=== PATIENT | female | born 1930 | race African-American/Black ===

== ENCOUNTER 2017-09-24 11:25 | Inpatient (IN) ==
[2017-09-24 11:57] LABS: Basophils % 0.2 % (0.0-0.8); Hematocrit 45.4 VOL% (35.7-47.0); Hemoglobin 14.1 GM/DL (12.0-16.0); Immature Granulocytes % 0.3 %; Immature Granulocytes Absolute 0.03 #; Lymphocytes # 1.3 10*3/uL (1.4-4.0); Lymphocytes % 13.7 % (21.3-54.2); Mean Corpuscular HGB Conc 31.1 GM/DL (32-36); Mean Corpuscular Hemoglobin 25 PG (27-34); Mean Corpuscular Volume 80.9 FL (87-102); Mean Platelet Volume 12.4 FL (9.6-12.0); Monocytes # 0.8 10*3/uL (0.11-0.8); Monocytes % 8.5 % (1.7-12.7); NRBC # 0.02 10*3/uL; Neutrophils # 7.1 10*3/uL (1.4-7.4); Neutrophils % 77.3 % (38.7-73.9); Platelet Count 221 T/CUMM (130-400); Red Blood Count 5.61 MC/CUMM (3.8-5.5); Red Cell Distribution Width 15.9 % (9.3-17.3); White Blood Count 9.2 T/CUMM (4-12)
[2017-09-24 12:04] LABS: INR 1.1; PT Patient Result 11.2 SECS; Partial Thromboplastin Time 21.2 SECS (0-40)
[2017-09-24 12:31] LABS: Albumin 3.5 G/DL (3.4-5.0); Bilirubin,Total 0.7 MG/DL (0.2-1.0); Calcium 10.2 MG/DL (8.5-10.1); Osmolality,Calculated 340.6 MOS/KG (273-304); Potassium 4.3 MMOL/L (3.5-5.1); Thyroid Stimulating Hormone 2.95 uIU/ml (0.358-3.74); Total Protein 7.9 G/DL (6.4-8.3)
[2017-09-24 13:30] LABS: Apearance,Urine Slightly Hazy (Clear); Bacteria,Urine Many /HPF (Few); Bilirubin,Urine Negative (Negative); Blood, Urine Negative (Negative); Glucose,Urine (UA) Negative (Negative); Ketones,Urine 5 mg/dL (Negative); Mucus,Urine Many /LPF (Occasional); Nitrite,Urine Negative (Negative); Protein,Urine Negative; RBC,Urine 1 /HPF (0-4); Urine Color Yellow (Yellow); Urine Specific Gravity 1.012 (1.001-1.035); WBC,Urine 12 /HPF (0-6)
[2017-09-24 13:34] LABS: Barbiturates Screen,Urine Negative (Negative); Benzodiazepines Screen,Urine Negative (Negative); Cannabinoid Screen,Urine Negative (Negative); Opiate Screen,Urine Negative (Negative); Phencyclidine Screen,Urine Negative (Negative)
[2017-09-25 07:33] LABS: Basophils % 0.1 % (0.0-0.8); Eosinophils % 0.1 % (0.00-10.9); Immature Granulocytes % 0.6 %; Immature Granulocytes Absolute 0.07 #; Lymphocytes # 1.4 10*3/uL (1.4-4.0); Lymphocytes % 12.4 % (21.3-54.2); Mean Corpuscular HGB Conc 30.8 GM/DL (32-36); Mean Corpuscular Hemoglobin 25 PG (27-34); Mean Corpuscular Volume 80.2 FL (87-102); Monocytes # 1.3 10*3/uL (0.11-0.8); Monocytes % 11.5 % (1.7-12.7); Neutrophils # 8.3 10*3/uL (1.4-7.4); Neutrophils % 75.3 % (38.7-73.9); Platelet Count 178 T/CUMM (130-400); Red Blood Count 4.86 MC/CUMM (3.8-5.5); Red Cell Distribution Width 15.9 % (9.3-17.3); White Blood Count 11.1 T/CUMM (4-12)
[2017-09-25 08:04] LABS: Calcium 8.8 MG/DL (8.5-10.1); Osmolality,Calculated 338.3 MOS/KG (273-304); Potassium 3.9 MMOL/L (3.5-5.1)
[2017-09-26 06:14] LABS: Basophils % 0.1 % (0.0-0.8); Eosinophils % 0.3 % (0.00-10.9); Hematocrit 35.7 VOL% (35.7-47.0); Hemoglobin 11.1 GM/DL (12.0-16.0); Immature Granulocytes % 0.6 %; Immature Granulocytes Absolute 0.06 #; Lymphocytes # 1.3 10*3/uL (1.4-4.0); Lymphocytes % 13.4 % (21.3-54.2); Mean Corpuscular HGB Conc 31.1 GM/DL (32-36); Mean Corpuscular Hemoglobin 26 PG (27-34); Mean Corpuscular Volume 81.9 FL (87-102); Mean Platelet Volume 12.8 FL (9.6-12.0); Monocytes # 0.9 10*3/uL (0.11-0.8); Monocytes % 9.4 % (1.7-12.7); Neutrophils # 7.3 10*3/uL (1.4-7.4); Neutrophils % 76.2 % (38.7-73.9); Platelet Count 124 T/CUMM (130-400); Red Blood Count 4.36 MC/CUMM (3.8-5.5); Red Cell Distribution Width 15.5 % (9.3-17.3); White Blood Count 9.6 T/CUMM (4-12)
[2017-09-26 06:50] LABS: Albumin 2.3 G/DL (3.4-5.0); Bilirubin,Total 0.7 MG/DL (0.2-1.0); Calcium 8.9 MG/DL (8.5-10.1); Osmolality,Calculated 320.3 MOS/KG (273-304); Potassium 5.7 MMOL/L (3.5-5.1)
[2017-09-27 05:21] LABS: Basophils % 0.1 % (0.0-0.8); Eosinophils % 0.2 % (0.00-10.9); Hematocrit 34.3 VOL% (35.7-47.0); Hemoglobin 10.8 GM/DL (12.0-16.0); Immature Granulocytes % 0.4 %; Immature Granulocytes Absolute 0.04 #; Lymphocytes # 1.2 10*3/uL (1.4-4.0); Lymphocytes % 12.8 % (21.3-54.2); Mean Corpuscular HGB Conc 31.5 GM/DL (32-36); Mean Corpuscular Hemoglobin 25 PG (27-34); Mean Corpuscular Volume 80.7 FL (87-102); Monocytes % 11.5 % (1.7-12.7); NRBC # 0.02 10*3/uL; Neutrophils # 6.8 10*3/uL (1.4-7.4); Platelet Count 138 T/CUMM (130-400); Red Blood Count 4.25 MC/CUMM (3.8-5.5); Red Cell Distribution Width 15.3 % (9.3-17.3); White Blood Count 9.1 T/CUMM (4-12)
[2017-09-27 05:56] LABS: Albumin 2.6 G/DL (3.4-5.0); Bilirubin,Total 1.2 MG/DL (0.2-1.0); Calcium 8.8 MG/DL (8.5-10.1); Total Protein 6.3 G/DL (6.4-8.3)
[2017-09-27 05:57] LABS: Osmolality,Calculated 324.4 MOS/KG (273-304); Potassium 3.3 MMOL/L (3.5-5.1)
[2017-09-27 05:58] LABS: Osmolality,Calculated 323.4 MOS/KG (273-304); Potassium 3.4 MMOL/L (3.5-5.1); Prealbumin 15.1 MG/DL (20-40)
[2017-09-28 08:29] LABS: Basophils % 0.3 % (0.0-0.8); Eosinophils # 0.1 10*3/uL (0.0-0.87); Eosinophils % 0.7 % (0.00-10.9); Hemoglobin 11.7 GM/DL (12.0-16.0); Immature Granulocytes % 0.7 %; Immature Granulocytes Absolute 0.05 #; Lymphocytes # 1.3 10*3/uL (1.4-4.0); Mean Corpuscular HGB Conc 30.8 GM/DL (32-36); Mean Corpuscular Hemoglobin 25 PG (27-34); Mean Corpuscular Volume 80.7 FL (87-102); Mean Platelet Volume 13.2 FL (9.6-12.0); Monocytes % 12.8 % (1.7-12.7); Neutrophils # 5.1 10*3/uL (1.4-7.4); Neutrophils % 68.5 % (38.7-73.9); Platelet Count 111 T/CUMM (130-400); Red Blood Count 4.71 MC/CUMM (3.8-5.5); Red Cell Distribution Width 15.4 % (9.3-17.3); White Blood Count 7.4 T/CUMM (4-12)
[2017-09-28 08:51] LABS: Albumin 2.8 G/DL (3.4-5.0); Bilirubin,Total 0.5 MG/DL (0.2-1.0); Calcium 9.2 MG/DL (8.5-10.1); Osmolality,Calculated 317.6 MOS/KG (273-304); Potassium 3.9 MMOL/L (3.5-5.1); Total Protein 6.7 G/DL (6.4-8.3)
[2017-09-28 11:37] VITALS: BP 137/64
== END 2017-09-28 14:30 | DRG 683 ==
LOC: EDBD → EDUNIT# → N.ED 11:25 → N.EDINP 13:57 → N.2E 14:40
PROVIDERS: ADMIT Internal Medicine; ATTEND Internal Medicine

== ENCOUNTER 2017-10-05 13:11 | Inpatient (IN) ==
[2017-10-05 14:09] LABS: Amorphous Crystals,Urine Occasional /HPF (Few); Apearance,Urine Slightly Hazy (Clear); Bilirubin,Urine Negative (Negative); Blood, Urine Negative (Negative); Glucose,Urine (UA) Negative (Negative); Hyaline Casts,Urine 13 /LPF (0-3); Ketones,Urine 20 mg/dL (Negative); Mucus,Urine Occasional /LPF (Occasional); Nitrite,Urine Negative (Negative); Protein,Urine 30 MG/DL; Squamous Epithelial Cell,Urine Occasional /HPF (0-10); Urine Color Yellow (Yellow); Urine Specific Gravity 1.016 (1.001-1.035); WBC,Urine 4 /HPF (0-6)
[2017-10-05 14:10] LABS: Basophils % 0.2 % (0.0-0.8); Eosinophils % 0.4 % (0.00-10.9); Hematocrit 33.9 VOL% (35.7-47.0); Hemoglobin 10.5 GM/DL (12.0-16.0); Immature Granulocytes % 0.4 %; Immature Granulocytes Absolute 0.02 #; Lymphocytes % 20.6 % (21.3-54.2); Mean Corpuscular Hemoglobin 25 PG (27-34); Mean Corpuscular Volume 80.3 FL (87-102); Mean Platelet Volume 12.4 FL (9.6-12.0); Monocytes # 0.4 10*3/uL (0.11-0.8); Monocytes % 9.1 % (1.7-12.7); Neutrophils # 3.3 10*3/uL (1.4-7.4); Neutrophils % 69.3 % (38.7-73.9); Platelet Count 191 T/CUMM (130-400); Red Blood Count 4.22 MC/CUMM (3.8-5.5); White Blood Count 4.7 T/CUMM (4-12)
[2017-10-05 14:32] LABS: Albumin 2.7 G/DL (3.4-5.0); Bilirubin,Total 0.5 MG/DL (0.2-1.0); Calcium 8.6 MG/DL (8.5-10.1); Osmolality,Calculated 301.7 MOS/KG (273-304); Potassium 3.5 MMOL/L (3.5-5.1); Total Protein 6.2 G/DL (6.4-8.3)
[2017-10-05] MEDS ORDERED: SODIUM CHLORIDE 0.9% 500 ML IV STA (14:49)
[2017-10-05] MEDS: DEXTROSE 5% NACL 0.45% 1,000 ML IV SCH (18:44)
[2017-10-05] MEDS: CARBIDOPA/LEVODOPA 25-100 MG TABLET PO SCH (20:37)
[2017-10-05] MEDS: NYSTATIN 500,000 UNIT/5 ML UDCUP SWISH/SWAL SCH (20:37)
[2017-10-05] MEDS: rOPINIRole 1 MG TABLET PO SCH (20:37)
[2017-10-05] MEDS ORDERED: NYSTATIN 500,000 UNIT/5 ML UDCUP SWISH/SWAL SCH (21:00)
[2017-10-06] MEDS: DEXTROSE 5% NACL 0.45% 1,000 ML IV SCH ×2 (05:00→15:10)
[2017-10-06] MEDS: rOPINIRole 1 MG TABLET PO SCH ×3 (08:18→21:36)
[2017-10-06] MEDS: NYSTATIN 500,000 UNIT/5 ML UDCUP SWISH/SWAL SCH ×4 (08:18→21:36)
[2017-10-06] MEDS: FAMOTIDINE 8 MG/ML 50 ML/BOTTLE PO SCH (08:18)
[2017-10-06] MEDS: MEMANTINE 10 MG TABLET PO SCH (08:18)
[2017-10-06] MEDS: MEGESTROL 400 MG/10 ML UDCUP PO SCH (08:18)
[2017-10-06] MEDS: CARBIDOPA/LEVODOPA 25-100 MG TABLET PO SCH ×3 (08:18→21:36)
[2017-10-06] MEDS: ASPIRIN EC 81 MG TABLET PO SCH ×2 (08:18→17:32)
[2017-10-06] MEDS: DONEPEZIL 10 MG TABLET PO SCH (08:18)
[2017-10-06 09:53] LABS: Basophils % 0.3 % (0.0-0.8); Eosinophils % 0.8 % (0.00-10.9); Hematocrit 31.1 VOL% (35.7-47.0); Hemoglobin 9.6 GM/DL (12.0-16.0); Immature Granulocytes % 0.5 %; Immature Granulocytes Absolute 0.02 #; Lymphocytes # 0.9 10*3/uL (1.4-4.0); Lymphocytes % 21.9 % (21.3-54.2); Mean Corpuscular HGB Conc 30.9 GM/DL (32-36); Mean Corpuscular Hemoglobin 25 PG (27-34); Mean Corpuscular Volume 79.9 FL (87-102); Monocytes # 0.4 10*3/uL (0.11-0.8); Monocytes % 10.6 % (1.7-12.7); Neutrophils # 2.6 10*3/uL (1.4-7.4); Neutrophils % 65.9 % (38.7-73.9); Platelet Count 165 T/CUMM (130-400); Red Blood Count 3.89 MC/CUMM (3.8-5.5); Red Cell Distribution Width 15.7 % (9.3-17.3)
[2017-10-06 10:17] LABS: Albumin 2.5 G/DL (3.4-5.0); Bilirubin,Total 0.5 MG/DL (0.2-1.0); Calcium 8.3 MG/DL (8.5-10.1); Osmolality,Calculated 298.1 MOS/KG (273-304); Potassium 2.9 MMOL/L (3.5-5.1); Total Protein 5.6 G/DL (6.4-8.3)
[2017-10-06 12:08] LABS: Apearance,Urine CLOUDY (Clear); Bacteria,Urine Occasional /HPF (Few); Bilirubin,Urine Negative (Negative); Blood, Urine Small mg/dL (Negative); Glucose,Urine (UA) Negative (Negative); Hyaline Casts,Urine 575 /LPF (0-3); Ketones,Urine 20 mg/dL (Negative); Mucus,Urine Many /LPF (Occasional); Nitrite,Urine Negative (Negative); Protein,Urine 30 MG/DL; Squamous Epithelial Cell,Urine Many /HPF (0-10); Urine Color Amber (Yellow); Urine Specific Gravity 1.017 (1.001-1.035); Urine Urobilinogen < 2.0 EU/DL (0.2-1.0); WBC,Urine 5 /HPF (0-6)
[2017-10-06] MEDS: HALOPERIDOL 5 MG/ML AMP IV PRN (18:26)
[2017-10-07 07:36] LABS: Potassium 2.9 MMOL/L (3.5-5.1)
[2017-10-07] MEDS: rOPINIRole 1 MG TABLET PO SCH ×3 (09:22→21:35)
[2017-10-07] MEDS: CARBIDOPA/LEVODOPA 25-100 MG TABLET PO SCH ×3 (09:22→21:35)
[2017-10-07] MEDS: MEMANTINE 10 MG TABLET PO SCH (09:22)
[2017-10-07] MEDS: ASPIRIN EC 81 MG TABLET PO SCH ×2 (09:22→17:16)
[2017-10-07] MEDS: DEXTROSE 5% NACL 0.45% 1,000 ML IV SCH ×2 (09:22→09:23)
[2017-10-07] MEDS: DONEPEZIL 10 MG TABLET PO SCH (09:22)
[2017-10-07] MEDS: FAMOTIDINE 8 MG/ML 50 ML/BOTTLE PO SCH (09:22)
[2017-10-07] MEDS: NYSTATIN 500,000 UNIT/5 ML UDCUP SWISH/SWAL SCH ×4 (09:22→21:35)
[2017-10-07] MEDS: MEGESTROL 400 MG/10 ML UDCUP PO SCH (09:22)
[2017-10-07] MEDS: POTASSIUM CHLORIDE 20 MEQ TABLET PO PRN ×3 (11:44→17:16)
[2017-10-07 12:24] LABS: Basophils % 0.2 % (0.0-0.8); Eosinophils % 0.2 % (0.00-10.9); Hematocrit 34.1 VOL% (35.7-47.0); Hemoglobin 10.7 GM/DL (12.0-16.0); Immature Granulocytes % 0.4 %; Immature Granulocytes Absolute 0.02 #; Lymphocytes # 1.1 10*3/uL (1.4-4.0); Lymphocytes % 19.5 % (21.3-54.2); Mean Corpuscular HGB Conc 31.4 GM/DL (32-36); Mean Corpuscular Hemoglobin 25 PG (27-34); Mean Corpuscular Volume 78.8 FL (87-102); Mean Platelet Volume 12.9 FL (9.6-12.0); Monocytes # 0.5 10*3/uL (0.11-0.8); Monocytes % 9.3 % (1.7-12.7); Neutrophils % 70.4 % (38.7-73.9); Platelet Count 166 T/CUMM (130-400); Red Blood Count 4.33 MC/CUMM (3.8-5.5); Red Cell Distribution Width 15.7 % (9.3-17.3); White Blood Count 5.6 T/CUMM (4-12)
[2017-10-07] MEDS: HALOPERIDOL 5 MG/ML AMP IV PRN (18:13)
[2017-10-07] MEDS: QUEtiapine 25 MG TABLET PO SCH (21:35)
[2017-10-08] MEDS: HALOPERIDOL 5 MG/ML AMP IV PRN (06:44)
[2017-10-08 08:08] LABS: Calcium 8.5 MG/DL (8.5-10.1); Osmolality,Calculated 281.1 MOS/KG (273-304); Potassium 3.6 MMOL/L (3.5-5.1)
[2017-10-08] MEDS: rOPINIRole 1 MG TABLET PO SCH ×3 (09:31→20:45)
[2017-10-08] MEDS: MEGESTROL 400 MG/10 ML UDCUP PO SCH (09:31)
[2017-10-08] MEDS: NYSTATIN 500,000 UNIT/5 ML UDCUP SWISH/SWAL SCH ×4 (09:31→20:45)
[2017-10-08] MEDS: MEMANTINE 10 MG TABLET PO SCH (09:31)
[2017-10-08] MEDS: DONEPEZIL 10 MG TABLET PO SCH (09:31)
[2017-10-08] MEDS: ASPIRIN EC 81 MG TABLET PO SCH ×2 (09:31→16:07)
[2017-10-08] MEDS: FAMOTIDINE 8 MG/ML 50 ML/BOTTLE PO SCH (09:31)
[2017-10-08] MEDS: CARBIDOPA/LEVODOPA 25-100 MG TABLET PO SCH ×3 (09:31→20:45)
[2017-10-08] MEDS: DEXTROSE 5% NACL 0.45% 1,000 ML IV SCH ×2 (19:07→19:08)
[2017-10-08] MEDS: QUEtiapine 25 MG TABLET PO SCH (20:45)
[2017-10-09 06:43] LABS: Eosinophils % 0.4 % (0.00-10.9); Hematocrit 29.2 VOL% (35.7-47.0); Hemoglobin 9.8 GM/DL (12.0-16.0); Immature Granulocytes % 0.4 %; Immature Granulocytes Absolute 0.02 #; Lymphocytes % 20.2 % (21.3-54.2); Mean Corpuscular HGB Conc 33.6 GM/DL (32-36); Mean Corpuscular Hemoglobin 26 PG (27-34); Mean Corpuscular Volume 75.8 FL (87-102); Mean Platelet Volume 12.3 FL (9.6-12.0); Monocytes # 0.3 10*3/uL (0.11-0.8); Monocytes % 5.8 % (1.7-12.7); NRBC # 0.03 10*3/uL; Neutrophils # 3.5 10*3/uL (1.4-7.4); Neutrophils % 73.2 % (38.7-73.9); Platelet Count 161 T/CUMM (130-400); Red Blood Count 3.85 MC/CUMM (3.8-5.5); Red Cell Distribution Width 15.6 % (9.3-17.3); White Blood Count 4.8 T/CUMM (4-12)
[2017-10-09] MEDS: CARBIDOPA/LEVODOPA 25-100 MG TABLET PO SCH ×3 (08:05→21:10)
[2017-10-09] MEDS: ASPIRIN EC 81 MG TABLET PO SCH ×2 (08:05→16:32)
[2017-10-09] MEDS: DEXTROSE 5% NACL 0.45% 1,000 ML IV SCH ×3 (08:05→16:32)
[2017-10-09] MEDS: MEMANTINE 10 MG TABLET PO SCH (08:05)
[2017-10-09] MEDS: NYSTATIN 500,000 UNIT/5 ML UDCUP SWISH/SWAL SCH ×4 (08:05→21:09)
[2017-10-09] MEDS: DONEPEZIL 10 MG TABLET PO SCH (08:05)
[2017-10-09] MEDS: MEGESTROL 400 MG/10 ML UDCUP PO SCH (08:05)
[2017-10-09] MEDS: rOPINIRole 1 MG TABLET PO SCH ×3 (08:05→21:09)
[2017-10-09] MEDS: FAMOTIDINE 8 MG/ML 50 ML/BOTTLE PO SCH (08:05)
[2017-10-09] MEDS: QUEtiapine 25 MG TABLET PO SCH (21:09)
[2017-10-10] MEDS: DEXTROSE 5% NACL 0.45% 1,000 ML IV SCH ×2 (00:43→08:53)
[2017-10-10] MEDS: POTASSIUM CHLORIDE 20 MEQ TABLET PO PRN (09:10)
[2017-10-10] MEDS: MEMANTINE 10 MG TABLET PO SCH (09:10)
[2017-10-10] MEDS: MEGESTROL 400 MG/10 ML UDCUP PO SCH (09:10)
[2017-10-10] MEDS: CARBIDOPA/LEVODOPA 25-100 MG TABLET PO SCH (09:11)
[2017-10-10] MEDS: FAMOTIDINE 8 MG/ML 50 ML/BOTTLE PO SCH (09:11)
[2017-10-10] MEDS: ASPIRIN EC 81 MG TABLET PO SCH (09:11)
[2017-10-10] MEDS: DONEPEZIL 10 MG TABLET PO SCH (09:11)
[2017-10-10] MEDS: NYSTATIN 500,000 UNIT/5 ML UDCUP SWISH/SWAL SCH ×2 (09:11→13:35)
[2017-10-10] MEDS: rOPINIRole 1 MG TABLET PO SCH (09:11)
[2017-10-10 09:33] LABS: Basophils % 0.2 % (0.0-0.8); Hematocrit 35.1 VOL% (35.7-47.0); Hemoglobin 11.5 GM/DL (12.0-16.0); Immature Granulocytes % 0.3 %; Immature Granulocytes Absolute 0.04 #; Lymphocytes # 1.5 10*3/uL (1.4-4.0); Lymphocytes % 12.5 % (21.3-54.2); Mean Corpuscular HGB Conc 32.8 GM/DL (32-36); Mean Corpuscular Hemoglobin 25 PG (27-34); Mean Corpuscular Volume 76.3 FL (87-102); Mean Platelet Volume 12.2 FL (9.6-12.0); Monocytes # 0.7 10*3/uL (0.11-0.8); Monocytes % 6.1 % (1.7-12.7); Neutrophils # 9.9 10*3/uL (1.4-7.4); Neutrophils % 80.9 % (38.7-73.9); Platelet Count 186 T/CUMM (130-400); Red Cell Distribution Width 15.7 % (9.3-17.3); White Blood Count 12.2 T/CUMM (4-12)
[2017-10-10 10:04] LABS: Albumin 2.5 G/DL (3.4-5.0); Bilirubin,Total 0.5 MG/DL (0.2-1.0); Potassium 4.3 MMOL/L (3.5-5.1); Total Protein 6.2 G/DL (6.4-8.3)
[2017-10-10] MEDS ORDERED: SCOPOLAMINE 1.5 MG PATCH TRANSDERM SCH (11:30)
[2017-10-10 12:32] VITALS: BP 115/62
== END 2017-10-10 14:55 | DRG 640 ==
LOC: EDUNIT# → EDBD → N.ED 13:11 → N.EDINP 13:11 → N.5E 18:35
PROVIDERS: ADMIT Internal Medicine; ATTEND Internal Medicine

== ENCOUNTER 2018-08-09 10:31 | Observation (INO) ==
[2018-08-09] MEDS ORDERED: HALOPERIDOL 5 MG/ML AMP IM STA (12:42)
[2018-08-09] MEDS ORDERED: ACETAMINOPHEN 325 MG TABLET PO PRN (14:24)
[2018-08-09] MEDS ORDERED: ONDANSETRON 4 MG/2 ML VIAL IV PRN (14:24)
[2018-08-09 15:17] LABS: Basophils % 0.2 % (0.0-0.8); Eosinophils % 0.2 % (0.00-10.9); Hematocrit 35.2 VOL% (35.7-47.0); Hemoglobin 10.6 GM/DL (12.0-16.0); Immature Granulocytes % 0.2 %; Immature Granulocytes Absolute 0.01 #; Lymphocytes # 0.9 10*3/uL (1.4-4.0); Lymphocytes % 21.7 % (21.3-54.2); Mean Corpuscular HGB Conc 30.1 GM/DL (32-36); Mean Corpuscular Volume 83.6 FL (87-102); Mean Platelet Volume 11.2 FL (9.6-12.0); Monocytes % 6.6 % (1.7-12.7); Neutrophils % 71.1 % (38.7-73.9); Platelet Count 161 T/CUMM (130-400); Red Blood Count 4.21 MC/CUMM (3.8-5.5); Red Cell Distribution Width 15.9 % (9.3-17.3); White Blood Count 4.2 T/CUMM (4-12)
[2018-08-09 15:38] LABS: Albumin 3.3 G/DL (3.4-5.0); Bilirubin,Total 0.5 MG/DL (0.2-1.0); Calcium 9.4 MG/DL (8.5-10.1); Total Protein 7.2 G/DL (6.4-8.3)
[2018-08-09 16:35] LABS: Apearance,Urine CLEAR (Clear); Bacteria,Urine Occasional /HPF (Few); Bilirubin,Urine Negative (Negative); Blood, Urine Negative (Negative); Glucose,Urine (UA) Negative (Negative); Hyaline Casts,Urine 22 /LPF (0-3); Ketones,Urine 5 mg/dL (Negative); Mucus,Urine Few /LPF (Occasional); Nitrite,Urine Negative (Negative); Protein,Urine Negative; RBC,Urine 1 /HPF (0-4); Squamous Epithelial Cell,Urine Occasional /HPF (0-10); Urine Color Amber (Yellow); WBC,Urine 2 /HPF (0-6)
[2018-08-09] MEDS: DOCUSATE SODIUM 100 MG CAPSULE PO SCH (20:49)
[2018-08-09] MEDS: SODIUM CHLORIDE 0.45% 1,000 ML IV SCH (20:49)
[2018-08-09] MEDS ORDERED: MAGNESIUM HYDROXIDE SUSP 30 ML UDCUP PO PRN (21:03)
[2018-08-09] MEDS ORDERED: HALOPERIDOL 5 MG/ML AMP IM PRN (21:03)
[2018-08-10 06:24] LABS: Basophils % 0.2 % (0.0-0.8); Eosinophils # 0.1 10*3/uL (0.0-0.87); Eosinophils % 1.9 % (0.00-10.9); Hematocrit 32.4 VOL% (35.7-47.0); Hemoglobin 9.8 GM/DL (12.0-16.0); Immature Granulocytes % 0.2 %; Immature Granulocytes Absolute 0.01 #; Lymphocytes # 1.8 10*3/uL (1.4-4.0); Lymphocytes % 42.4 % (21.3-54.2); Mean Corpuscular HGB Conc 30.2 GM/DL (32-36); Mean Corpuscular Volume 82.2 FL (87-102); Mean Platelet Volume 12.1 FL (9.6-12.0); Monocytes % 11.3 % (1.7-12.7); Platelet Count 158 T/CUMM (130-400); Red Blood Count 3.94 MC/CUMM (3.8-5.5); Red Cell Distribution Width 15.9 % (9.3-17.3); White Blood Count 4.3 T/CUMM (4-12)
[2018-08-10 06:46] LABS: Calcium 9.3 MG/DL (8.5-10.1); Osmolality,Calculated 287.8 MOS/KG (273-304); Thyroid Stimulating Hormone 2.05 uIU/ml (0.358-3.74)
[2018-08-10] MEDS ORDERED: AMANTADINE PO SCH (09:00)
[2018-08-10] MEDS: DONEPEZIL 10 MG TABLET PO SCH (09:11)
[2018-08-10] MEDS: ASPIRIN EC 81 MG TABLET PO SCH ×2 (09:11→21:43)
[2018-08-10] MEDS: rOPINIRole 1 MG TABLET PO SCH ×4 (09:11→21:44)
[2018-08-10] MEDS: FAMOTIDINE 20 MG TABLET PO SCH (09:12)
[2018-08-10] MEDS: CARBIDOPA/LEVODOPA 25-100 MG TABLET PO SCH ×4 (09:12→17:15)
[2018-08-10] MEDS: POLYETHYLENE GLYCOL POWDER 17 GM PACK PO SCH (09:12)
[2018-08-10] MEDS: DOCUSATE SODIUM 100 MG CAPSULE PO SCH ×2 (09:12→21:43)
[2018-08-10] MEDS: MEMANTINE 10 MG TABLET PO SCH (09:13)
[2018-08-10] MEDS: SODIUM CHLORIDE 0.45% 1,000 ML IV SCH ×2 (10:07→21:42)
[2018-08-10] MEDS: HALOPERIDOL 5 MG/ML AMP IM PRN (14:22)
[2018-08-10] MEDS ORDERED: QUEtiapine 25 MG TABLET PO SCH (20:00)
[2018-08-10] MEDS: QUEtiapine 25 MG TABLET PO SCH (21:42)
[2018-08-10] MEDS: MEGESTROL 40 MG TABLET PO SCH (21:43)
[2018-08-11] MEDS: SODIUM CHLORIDE 0.45% 1,000 ML IV SCH ×2 (08:23→20:59)
[2018-08-11] MEDS: FAMOTIDINE 20 MG TABLET PO SCH (08:27)
[2018-08-11] MEDS: MEMANTINE 10 MG TABLET PO SCH (08:27)
[2018-08-11] MEDS: POLYETHYLENE GLYCOL POWDER 17 GM PACK PO SCH (08:27)
[2018-08-11] MEDS: DOCUSATE SODIUM 100 MG CAPSULE PO SCH ×2 (08:27→20:57)
[2018-08-11] MEDS: MEGESTROL 40 MG TABLET PO SCH ×3 (08:27→20:57)
[2018-08-11] MEDS: DONEPEZIL 10 MG TABLET PO SCH (08:27)
[2018-08-11] MEDS: ASPIRIN EC 81 MG TABLET PO SCH ×2 (08:27→20:57)
[2018-08-11] MEDS: rOPINIRole 1 MG TABLET PO SCH ×3 (08:28→20:57)
[2018-08-11] MEDS: CARBIDOPA/LEVODOPA 25-100 MG TABLET PO SCH ×3 (08:28→18:39)
[2018-08-11] MEDS ORDERED: GLUCOSE GEL 15 GM TUBE PO ONE ×2 (15:24→15:26)
[2018-08-11] MEDS ORDERED: hydrALAZINE 20 MG/1 ML VIAL IV PRN (15:32)
[2018-08-11 15:47] LABS: Basophils % 0.3 % (0.0-0.8); Eosinophils % 0.5 % (0.00-10.9); Hematocrit 37.3 VOL% (35.7-47.0); Hemoglobin 11.3 GM/DL (12.0-16.0); Immature Granulocytes % 0.5 %; Immature Granulocytes Absolute 0.03 #; Lymphocytes # 1.4 10*3/uL (1.4-4.0); Lymphocytes % 23.7 % (21.3-54.2); Mean Corpuscular HGB Conc 30.3 GM/DL (32-36); Mean Corpuscular Volume 82.3 FL (87-102); Mean Platelet Volume 11.4 FL (9.6-12.0); Monocytes % 7.1 % (1.7-12.7); Neutrophils % 67.9 % (38.7-73.9); Platelet Count 182 T/CUMM (130-400); Red Blood Count 4.53 MC/CUMM (3.8-5.5); Red Cell Distribution Width 15.8 % (9.3-17.3); White Blood Count 5.8 T/CUMM (4-12)
[2018-08-11 16:13] LABS: Albumin 3.3 G/DL (3.4-5.0); Bilirubin,Total 0.5 MG/DL (0.2-1.0); Calcium 8.9 MG/DL (8.5-10.1); Osmolality,Calculated 274.8 MOS/KG (273-304); Thyroid Stimulating Hormone 2.81 uIU/ml (0.358-3.74); Total Protein 6.3 G/DL (6.4-8.3)
[2018-08-11] MEDS ORDERED: cefTRIAXone 500 MG in SYRINGE 1 EACH IV SCH (17:00)
[2018-08-11] MEDS: HALOPERIDOL 5 MG/ML AMP IM PRN (19:19)
[2018-08-11] MEDS: QUEtiapine 25 MG TABLET PO SCH (20:52)
[2018-08-12] MEDS: CARBIDOPA/LEVODOPA 25-100 MG TABLET PO SCH ×2 (10:37→13:48)
[2018-08-12] MEDS: DONEPEZIL 10 MG TABLET PO SCH (10:37)
[2018-08-12] MEDS: MEMANTINE 10 MG TABLET PO SCH (10:37)
[2018-08-12] MEDS: rOPINIRole 1 MG TABLET PO SCH ×2 (10:37→13:47)
[2018-08-12] MEDS: FAMOTIDINE 20 MG TABLET PO SCH (10:38)
[2018-08-12] MEDS: ASPIRIN EC 81 MG TABLET PO SCH (10:38)
[2018-08-12] MEDS: MEGESTROL 40 MG TABLET PO SCH (10:38)
[2018-08-12] MEDS: DOCUSATE SODIUM 100 MG CAPSULE PO SCH (10:38)
[2018-08-12] MEDS: POLYETHYLENE GLYCOL POWDER 17 GM PACK PO SCH (10:38)
[2018-08-12 12:30] VITALS: BP 146/60
== END 2018-08-12 15:17 ==
LOC: EDUNIT# → EDBD → N.EDINP 10:31 → N.ED 10:31 → N.EDINP 16:56 → N.3E 17:22
PROVIDERS: ADMIT Internal Medicine; ATTEND Internal Medicine

== ENCOUNTER 2018-08-17 22:38 | Inpatient (IN) ==
[2018-08-17] MEDS ORDERED: ACETAMINOPHEN 325 MG/10.15 ML UDCUP PO STA (22:49)
[2018-08-17 23:49] LABS: Basophils % 0.1 % (0.0-0.8); Eosinophils % 0.5 % (0.00-10.9); Hematocrit 28.8 VOL% (35.7-47.0); Hemoglobin 9.2 GM/DL (12.0-16.0); Immature Granulocytes % 0.4 %; Immature Granulocytes Absolute 0.03 #; Lymphocytes # 1.8 10*3/uL (1.4-4.0); Lymphocytes % 22.9 % (21.3-54.2); Mean Corpuscular HGB Conc 31.9 GM/DL (32-36); Mean Corpuscular Volume 78.3 FL (87-102); Mean Platelet Volume 11.2 FL (9.6-12.0); Monocytes % 13.2 % (1.7-12.7); Neutrophils % 62.9 % (38.7-73.9); Platelet Count 197 T/CUMM (130-400); Red Blood Count 3.68 MC/CUMM (3.8-5.5); Red Cell Distribution Width 15.3 % (9.3-17.3); White Blood Count 7.9 T/CUMM (4-12)
[2018-08-18 00:11] LABS: Albumin 3.3 G/DL (3.4-5.0); Bilirubin,Total 0.5 MG/DL (0.2-1.0); Calcium 10.1 MG/DL (8.5-10.1); Total Protein 6.7 G/DL (6.4-8.3)
[2018-08-18] MEDS ORDERED: PANTOPRAZOLE 40 MG TABLET PO STA (00:25)
[2018-08-18] MEDS ORDERED: PANTOPRAZOLE 40 MG VIAL IV STA (01:04)
[2018-08-18] MEDS ORDERED: ONDANSETRON ODT 4 MG TABLET PO PRN (02:17)
[2018-08-18] MEDS ORDERED: HALOPERIDOL 5 MG/ML AMP IM PRN (02:17)
[2018-08-18] MEDS ORDERED: ZALEPLON 5 MG CAPSULE PO PRN (02:17)
[2018-08-18] MEDS ORDERED: MAGNESIUM HYDROXIDE SUSP 30 ML UDCUP PO PRN (13:52)
[2018-08-18] MEDS ORDERED: ALBUTEROL/IPRATROPIUM 3 ML NEB RESP TX PRN (13:52)
[2018-08-18] MEDS: MEGESTROL 40 MG TABLET PO SCH ×3 (16:07→23:25)
[2018-08-18] MEDS: CARBIDOPA/LEVODOPA 25-100 MG TABLET PO SCH (16:07)
[2018-08-18] MEDS: QUEtiapine 25 MG TABLET PO SCH ×2 (22:39→23:25)
[2018-08-18] MEDS: rOPINIRole 1 MG TABLET PO SCH ×2 (22:39→23:25)
[2018-08-18] MEDS: ACETAMINOPHEN 325 MG/10.15 ML UDCUP PO PRN (23:23)
[2018-08-19] MEDS ORDERED: AMANTADINE HCL PO SCH (09:00)
[2018-08-19] MEDS: CARBIDOPA/LEVODOPA 25-100 MG TABLET PO SCH ×3 (09:09→17:35)
[2018-08-19] MEDS: POLYETHYLENE GLYCOL POWDER 17 GM PACK PO SCH (09:09)
[2018-08-19] MEDS: SKIN HEALING OINT (AQUAPHOR) 50 GM TUBE TOP SCH (09:09)
[2018-08-19] MEDS: rOPINIRole 1 MG TABLET PO SCH ×3 (09:10→20:50)
[2018-08-19] MEDS: MEGESTROL 40 MG TABLET PO SCH ×3 (09:10→20:51)
[2018-08-19] MEDS: DONEPEZIL 10 MG TABLET PO SCH (09:10)
[2018-08-19] MEDS: MEMANTINE 10 MG TABLET PO SCH (09:10)
[2018-08-19] MEDS: PANTOPRAZOLE 40 MG TABLET PO SCH (09:10)
[2018-08-19] MEDS: ACETAMINOPHEN 325 MG/10.15 ML UDCUP PO PRN (16:53)
[2018-08-19] MEDS: QUEtiapine 25 MG TABLET PO SCH (20:50)
[2018-08-19] MEDS: KETOROLAC 15 MG/1 ML VIAL IV PRN (20:55)
[2018-08-19] MEDS: cefTRIAXone 500 MG in SYRINGE 1 EACH IV SCH (21:47)
[2018-08-20] MEDS: HALOPERIDOL 5 MG/ML AMP IM PRN ×2 (01:46→17:10)
[2018-08-20] MEDS: KETOROLAC 15 MG/1 ML VIAL IV PRN (05:31)
[2018-08-20 05:35] LABS: Basophils % 0.2 % (0.0-0.8); Eosinophils # 0.1 10*3/uL (0.0-0.87); Eosinophils % 1.3 % (0.00-10.9); Hematocrit 22.9 VOL% (35.7-47.0); Hemoglobin 7.2 GM/DL (12.0-16.0); Immature Granulocytes % 0.3 %; Immature Granulocytes Absolute 0.02 #; Lymphocytes # 1.5 10*3/uL (1.4-4.0); Lymphocytes % 24.3 % (21.3-54.2); Mean Corpuscular HGB Conc 31.4 GM/DL (32-36); Mean Corpuscular Volume 80.9 FL (87-102); Mean Platelet Volume 11.4 FL (9.6-12.0); Monocytes % 16.4 % (1.7-12.7); Neutrophils % 57.5 % (38.7-73.9); Platelet Count 157 T/CUMM (130-400); Red Blood Count 2.83 MC/CUMM (3.8-5.5); Red Cell Distribution Width 15.8 % (9.3-17.3)
[2018-08-20 05:57] LABS: Band Neutrophils 1 % (0-10); Eosinophils 1 % (0-10); Hypochromasia 1+; Lymphocytes 17 % (20-55); Platelet Estimate Adequate; Segmented Neutrophils 70 % (50-85); Total Cells Counted 100
[2018-08-20 05:58] LABS: Albumin 2.7 G/DL (3.4-5.0); Bilirubin,Total 1.3 MG/DL (0.2-1.0); Calcium 9.2 MG/DL (8.5-10.1); Osmolality,Calculated 294.6 MOS/KG (273-304); Total Protein 5.9 G/DL (6.4-8.3)
[2018-08-20] MEDS: POLYETHYLENE GLYCOL POWDER 17 GM PACK PO SCH ×2 (08:04→10:04)
[2018-08-20] MEDS: CARBIDOPA/LEVODOPA 25-100 MG TABLET PO SCH ×4 (08:05→17:28)
[2018-08-20] MEDS: PANTOPRAZOLE 40 MG TABLET PO SCH ×2 (08:05→10:04)
[2018-08-20] MEDS: MEGESTROL 40 MG TABLET PO SCH ×4 (08:05→21:46)
[2018-08-20] MEDS: SKIN HEALING OINT (AQUAPHOR) 50 GM TUBE TOP SCH (08:05)
[2018-08-20] MEDS: MEMANTINE 10 MG TABLET PO SCH ×2 (08:05→10:04)
[2018-08-20] MEDS: DONEPEZIL 10 MG TABLET PO SCH ×2 (08:05→10:03)
[2018-08-20] MEDS: rOPINIRole 1 MG TABLET PO SCH ×4 (08:05→21:46)
[2018-08-20] MEDS ORDERED: SODIUM CHLORIDE 0.9% 1,000 ML IV PRN (11:26)
[2018-08-20] MEDS: cefTRIAXone 500 MG in SYRINGE 1 EACH IV SCH (20:58)
[2018-08-20] MEDS: QUEtiapine 25 MG TABLET PO SCH (21:45)
[2018-08-21 01:35] LABS: Basophils % 0.2 % (0.0-0.8); Eosinophils # 0.1 10*3/uL (0.0-0.87); Eosinophils % 0.8 % (0.00-10.9); Hematocrit 34.8 VOL% (35.7-47.0); Immature Granulocytes % 0.4 %; Immature Granulocytes Absolute 0.03 #; Lymphocytes # 1.7 10*3/uL (1.4-4.0); Lymphocytes % 20.2 % (21.3-54.2); Mean Corpuscular HGB Conc 32.2 GM/DL (32-36); Mean Corpuscular Volume 82.1 FL (87-102); Mean Platelet Volume 11.5 FL (9.6-12.0); Monocytes % 12.2 % (1.7-12.7); Neutrophils % 66.2 % (38.7-73.9); Platelet Count 178 T/CUMM (130-400); Red Cell Distribution Width 15.4 % (9.3-17.3); White Blood Count 8.4 T/CUMM (4-12)
[2018-08-21 01:41] LABS: Hemoglobin 11.2 GM/DL (12.0-16.0); Red Blood Count 4.24 MC/CUMM (3.8-5.5)
[2018-08-21] MEDS: SKIN HEALING OINT (AQUAPHOR) 50 GM TUBE TOP SCH (09:29)
[2018-08-21] MEDS: rOPINIRole 1 MG TABLET PO SCH ×3 (09:57→21:03)
[2018-08-21] MEDS: POLYETHYLENE GLYCOL POWDER 17 GM PACK PO SCH (09:57)
[2018-08-21] MEDS: CARBIDOPA/LEVODOPA 25-100 MG TABLET PO SCH ×3 (09:57→17:22)
[2018-08-21] MEDS: MEGESTROL 40 MG TABLET PO SCH ×3 (09:57→21:03)
[2018-08-21] MEDS: DONEPEZIL 10 MG TABLET PO SCH (09:57)
[2018-08-21] MEDS: PANTOPRAZOLE 40 MG TABLET PO SCH (09:57)
[2018-08-21] MEDS: MEMANTINE 10 MG TABLET PO SCH (09:57)
[2018-08-21 11:35] LABS: Basophils % 0.3 % (0.0-0.8); Eosinophils # 0.1 10*3/uL (0.0-0.87); Eosinophils % 0.5 % (0.00-10.9); Hematocrit 35.2 VOL% (35.7-47.0); Hemoglobin 11.4 GM/DL (12.0-16.0); Immature Granulocytes % 0.4 %; Immature Granulocytes Absolute 0.05 #; Lymphocytes # 1.9 10*3/uL (1.4-4.0); Mean Corpuscular HGB Conc 32.4 GM/DL (32-36); Mean Corpuscular Volume 81.3 FL (87-102); Mean Platelet Volume 11.6 FL (9.6-12.0); Monocytes % 9.7 % (1.7-12.7); Neutrophils % 73.1 % (38.7-73.9); Platelet Count 208 T/CUMM (130-400); Red Blood Count 4.33 MC/CUMM (3.8-5.5); Red Cell Distribution Width 15.7 % (9.3-17.3); White Blood Count 11.7 T/CUMM (4-12)
[2018-08-21 12:06] LABS: Calcium 9.9 MG/DL (8.5-10.1); Osmolality,Calculated 297.8 MOS/KG (273-304)
[2018-08-21] MEDS: QUEtiapine 25 MG TABLET PO SCH (21:03)
[2018-08-21] MEDS: cefTRIAXone 500 MG in SYRINGE 1 EACH IV SCH (21:20)
[2018-08-22 08:32] LABS: Basophils % 0.2 % (0.0-0.8); Eosinophils # 0.1 10*3/uL (0.0-0.87); Eosinophils % 0.6 % (0.00-10.9); Hematocrit 35.2 VOL% (35.7-47.0); Hemoglobin 11.5 GM/DL (12.0-16.0); Immature Granulocytes % 0.3 %; Immature Granulocytes Absolute 0.04 #; Lymphocytes # 2.1 10*3/uL (1.4-4.0); Lymphocytes % 16.9 % (21.3-54.2); Mean Corpuscular HGB Conc 32.7 GM/DL (32-36); Mean Corpuscular Volume 82.2 FL (87-102); Mean Platelet Volume 11.7 FL (9.6-12.0); Monocytes % 10.3 % (1.7-12.7); Neutrophils % 71.7 % (38.7-73.9); Platelet Count 210 T/CUMM (130-400); Red Blood Count 4.28 MC/CUMM (3.8-5.5); Red Cell Distribution Width 16.3 % (9.3-17.3); White Blood Count 12.3 T/CUMM (4-12)
[2018-08-22] MEDS ORDERED: PROPOFOL 200 MG/20 ML VIAL IV ONE (09:00)
[2018-08-22] MEDS ORDERED: LIDOCAINE 1% 5 ML VIAL ONE (09:00)
[2018-08-22] MEDS: rOPINIRole 1 MG TABLET PO SCH ×3 (09:33→20:28)
[2018-08-22] MEDS: CARBIDOPA/LEVODOPA 25-100 MG TABLET PO SCH ×3 (09:33→17:00)
[2018-08-22] MEDS: SKIN HEALING OINT (AQUAPHOR) 50 GM TUBE TOP SCH (09:33)
[2018-08-22] MEDS: LACTATED RINGERS 1,000 ML IV SCH (09:33)
[2018-08-22] MEDS: MEGESTROL 40 MG TABLET PO SCH ×3 (09:33→20:27)
[2018-08-22] MEDS: PANTOPRAZOLE 40 MG TABLET PO SCH (13:39)
[2018-08-22] MEDS: DONEPEZIL 10 MG TABLET PO SCH (13:39)
[2018-08-22] MEDS: MEMANTINE 10 MG TABLET PO SCH (13:39)
[2018-08-22] MEDS: POLYETHYLENE GLYCOL POWDER 17 GM PACK PO SCH (13:40)
[2018-08-22] MEDS: cefTRIAXone 500 MG in SYRINGE 1 EACH IV SCH (20:22)
[2018-08-22] MEDS: QUEtiapine 25 MG TABLET PO SCH (20:27)
[2018-08-23 08:00] LABS: Basophils # 0.1 10*3/uL (0.0-0.2); Basophils % 0.2 % (0.0-0.8); Hematocrit 36.5 VOL% (35.7-47.0); Hemoglobin 11.5 GM/DL (12.0-16.0); Immature Granulocytes % 0.8 %; Immature Granulocytes Absolute 0.17 #; Lymphocytes # 1.5 10*3/uL (1.4-4.0); Lymphocytes % 6.8 % (21.3-54.2); Mean Corpuscular HGB Conc 31.5 GM/DL (32-36); Mean Corpuscular Volume 83.3 FL (87-102); Mean Platelet Volume 11.3 FL (9.6-12.0); Monocytes % 6.8 % (1.7-12.7); Neutrophils % 85.4 % (38.7-73.9); Platelet Count 203 T/CUMM (130-400); Red Blood Count 4.38 MC/CUMM (3.8-5.5); Red Cell Distribution Width 16.5 % (9.3-17.3); White Blood Count 22.2 T/CUMM (4-12)
[2018-08-23 08:15] LABS: Calcium 9.2 MG/DL (8.5-10.1); Osmolality,Calculated 293.7 MOS/KG (273-304)
[2018-08-23 08:32] LABS: Band Neutrophils 8 % (0-10); Hypochromasia 1+; Lymphocytes 4 % (20-55); Segmented Neutrophils 82 % (50-85); Total Cells Counted 100
[2018-08-23 08:33] LABS: Microcytosis 1+; Ovalocytes Slight; Platelet Estimate Normal
[2018-08-23] MEDS: DONEPEZIL 10 MG TABLET PO SCH (11:19)
[2018-08-23] MEDS: POLYETHYLENE GLYCOL POWDER 17 GM PACK PO SCH (11:20)
[2018-08-23] MEDS: SKIN HEALING OINT (AQUAPHOR) 50 GM TUBE TOP SCH (11:20)
[2018-08-23] MEDS: PANTOPRAZOLE 40 MG TABLET PO SCH (11:20)
[2018-08-23] MEDS: rOPINIRole 1 MG TABLET PO SCH ×3 (11:20→21:29)
[2018-08-23] MEDS: CARBIDOPA/LEVODOPA 25-100 MG TABLET PO SCH ×3 (11:20→16:23)
[2018-08-23] MEDS: MEMANTINE 10 MG TABLET PO SCH (11:20)
[2018-08-23] MEDS: MEGESTROL 40 MG TABLET PO SCH ×3 (11:20→21:29)
[2018-08-23] MEDS: LACTATED RINGERS 1,000 ML IV SCH (14:24)
[2018-08-23] MEDS ORDERED: ALPRAZolam 0.25 MG TABLET PO ONE (15:01)
[2018-08-23] MEDS: QUEtiapine 25 MG TABLET PO SCH (21:29)
[2018-08-23] MEDS: cefTRIAXone 500 MG in SYRINGE 1 EACH IV SCH (21:29)
[2018-08-24 04:59] LABS: Basophils % 0.1 % (0.0-0.8); Eosinophils # 0.1 10*3/uL (0.0-0.87); Eosinophils % 0.5 % (0.00-10.9); Hematocrit 34.3 VOL% (35.7-47.0); Hemoglobin 10.9 GM/DL (12.0-16.0); Immature Granulocytes % 0.6 %; Lymphocytes # 2.5 10*3/uL (1.4-4.0); Lymphocytes % 14.8 % (21.3-54.2); Mean Corpuscular HGB Conc 31.8 GM/DL (32-36); Mean Corpuscular Volume 83.7 FL (87-102); Mean Platelet Volume 11.6 FL (9.6-12.0); Monocytes % 7.2 % (1.7-12.7); Neutrophils % 76.8 % (38.7-73.9); Platelet Count 218 T/CUMM (130-400); Red Cell Distribution Width 16.7 % (9.3-17.3); White Blood Count 16.9 T/CUMM (4-12)
[2018-08-24] MEDS: LACTATED RINGERS 1,000 ML IV SCH (07:41)
[2018-08-24] MEDS: DONEPEZIL 10 MG TABLET PO SCH (08:20)
[2018-08-24] MEDS: POLYETHYLENE GLYCOL POWDER 17 GM PACK PO SCH (08:21)
[2018-08-24] MEDS: MEGESTROL 40 MG TABLET PO SCH ×3 (08:21→20:35)
[2018-08-24] MEDS: CARBIDOPA/LEVODOPA 25-100 MG TABLET PO SCH ×3 (08:21→16:00)
[2018-08-24] MEDS: PANTOPRAZOLE 40 MG TABLET PO SCH (08:21)
[2018-08-24] MEDS: MEMANTINE 10 MG TABLET PO SCH (08:21)
[2018-08-24] MEDS: rOPINIRole 1 MG TABLET PO SCH ×3 (08:21→20:35)
[2018-08-24] MEDS: SKIN HEALING OINT (AQUAPHOR) 50 GM TUBE TOP SCH (08:22)
[2018-08-24] MEDS: QUEtiapine 25 MG TABLET PO SCH (20:35)
[2018-08-24] MEDS: cefTRIAXone 500 MG in SYRINGE 1 EACH IV SCH (20:35)
[2018-08-25] MEDS: PANTOPRAZOLE 40 MG TABLET PO SCH (10:04)
[2018-08-25] MEDS: LACTATED RINGERS 1,000 ML IV SCH (10:04)
[2018-08-25] MEDS: MEMANTINE 10 MG TABLET PO SCH (10:04)
[2018-08-25] MEDS: DONEPEZIL 10 MG TABLET PO SCH (10:04)
[2018-08-25] MEDS: MEGESTROL 40 MG TABLET PO SCH ×3 (10:04→20:37)
[2018-08-25] MEDS: rOPINIRole 1 MG TABLET PO SCH ×3 (10:04→20:37)
[2018-08-25] MEDS: POLYETHYLENE GLYCOL POWDER 17 GM PACK PO SCH (10:05)
[2018-08-25] MEDS: CARBIDOPA/LEVODOPA 25-100 MG TABLET PO SCH ×3 (10:05→16:35)
[2018-08-25] MEDS: SKIN HEALING OINT (AQUAPHOR) 50 GM TUBE TOP SCH (10:05)
[2018-08-25] MEDS: QUEtiapine 25 MG TABLET PO SCH (20:37)
[2018-08-25] MEDS: cefTRIAXone 500 MG in SYRINGE 1 EACH IV SCH (20:38)
[2018-08-26 07:51] LABS: Basophils % 0.2 % (0.0-0.8); Eosinophils # 0.1 10*3/uL (0.0-0.87); Eosinophils % 1.5 % (0.00-10.9); Hematocrit 36.2 VOL% (35.7-47.0); Hemoglobin 10.8 GM/DL (12.0-16.0); Immature Granulocytes % 0.5 %; Immature Granulocytes Absolute 0.05 #; Lymphocytes # 1.5 10*3/uL (1.4-4.0); Lymphocytes % 15.9 % (21.3-54.2); Mean Corpuscular HGB Conc 29.8 GM/DL (32-36); Mean Corpuscular Volume 87.2 FL (87-102); Mean Platelet Volume 10.4 FL (9.6-12.0); Monocytes % 8.5 % (1.7-12.7); Neutrophils % 73.4 % (38.7-73.9); Platelet Count 258 T/CUMM (130-400); Red Blood Count 4.15 MC/CUMM (3.8-5.5); Red Cell Distribution Width 16.7 % (9.3-17.3); White Blood Count 9.2 T/CUMM (4-12)
[2018-08-26] MEDS: LACTATED RINGERS 1,000 ML IV SCH (10:26)
[2018-08-26] MEDS: DONEPEZIL 10 MG TABLET PO SCH ×2 (10:28→14:22)
[2018-08-26] MEDS: PANTOPRAZOLE 40 MG TABLET PO SCH ×2 (10:28→14:22)
[2018-08-26] MEDS: MEMANTINE 10 MG TABLET PO SCH ×2 (10:28→14:22)
[2018-08-26] MEDS: MEGESTROL 40 MG TABLET PO SCH ×4 (10:28→20:20)
[2018-08-26] MEDS: CARBIDOPA/LEVODOPA 25-100 MG TABLET PO SCH ×4 (10:28→17:41)
[2018-08-26] MEDS: rOPINIRole 1 MG TABLET PO SCH ×4 (10:28→20:20)
[2018-08-26] MEDS: SKIN HEALING OINT (AQUAPHOR) 50 GM TUBE TOP SCH (10:29)
[2018-08-26] MEDS: POLYETHYLENE GLYCOL POWDER 17 GM PACK PO SCH ×2 (10:31→14:22)
[2018-08-26] MEDS: QUEtiapine 25 MG TABLET PO SCH (20:20)
[2018-08-26] MEDS: cefTRIAXone 500 MG in SYRINGE 1 EACH IV SCH ×2 (20:26→20:28)
[2018-08-27 07:53] VITALS: BP 147/80
[2018-08-27] MEDS: LACTATED RINGERS 1,000 ML IV SCH (08:10)
[2018-08-27] MEDS: CARBIDOPA/LEVODOPA 25-100 MG TABLET PO SCH (08:36)
[2018-08-27] MEDS: PANTOPRAZOLE 40 MG TABLET PO SCH (08:36)
[2018-08-27] MEDS: POLYETHYLENE GLYCOL POWDER 17 GM PACK PO SCH (08:37)
[2018-08-27] MEDS: rOPINIRole 1 MG TABLET PO SCH (08:37)
[2018-08-27] MEDS: MEGESTROL 40 MG TABLET PO SCH (08:37)
[2018-08-27] MEDS: MEMANTINE 10 MG TABLET PO SCH (08:37)
[2018-08-27] MEDS: DONEPEZIL 10 MG TABLET PO SCH (08:37)
[2018-08-27] MEDS: SKIN HEALING OINT (AQUAPHOR) 50 GM TUBE TOP SCH (09:15)
== END 2018-08-27 10:45 | DRG 563 ==
LOC: EDBD → EDUNIT# → N.ED 22:38 → N.EDINP 22:38 → SUATTDRO 08-18 00:29 → N.EDINP 08-18 01:49 → N.3E 08-18 02:16
PROVIDERS: ADMIT Internal Medicine; ATTEND Internal Medicine

== ENCOUNTER 2019-11-10 13:03 | Inpatient (IN) ==
[2019-11-10] MEDS ORDERED: DEXTROSE 50% 25 GM/50 ML SYRINGE IV ONE (13:11)
[2019-11-10] MEDS ORDERED: SODIUM CHLORIDE 0.9% 1,000 ML IV STA (13:30)
[2019-11-10] MEDS ORDERED: MEROPENEM 500 MG in SODIUM CHLORIDE 0.9% 100 ML IV ONE (13:35)
[2019-11-10 13:41] LABS: Hematocrit 26.1 VOL% (35.7-47.0); Hemoglobin 7.9 GM/DL (12.0-16.0); Immature Granulocytes % 0.5 %; Immature Granulocytes Absolute 0.02 #; Lymphocytes # 0.6 10*3/uL (1.4-4.0); Lymphocytes % 16.5 % (21.3-54.2); Mean Corpuscular HGB Conc 30.3 GM/DL (32-36); Mean Corpuscular Volume 75.9 FL (87-102); Monocytes % 4.5 % (1.7-12.7); NRBC # 0.25 10*3/uL; Neutrophils % 78.5 % (38.7-73.9); Platelet Count 122 T/CUMM (130-400); Red Blood Count 3.44 MC/CUMM (3.8-5.5); Red Cell Distribution Width 18.6 % (9.3-17.3); White Blood Count 3.8 T/CUMM (4-12)
[2019-11-10 13:59] LABS: Albumin 2.2 G/DL (3.4-5.0); Bilirubin,Total 0.6 MG/DL (0.2-1.0); Calcium 9.8 MG/DL (8.5-10.1); Osmolality,Calculated 304.6 MOS/KG (273-304); Total Protein 5.2 G/DL (6.4-8.3)
[2019-11-10] MEDS ORDERED: ACETAMINOPHEN 325 MG TABLET PO PRN (15:39)
[2019-11-10] MEDS ORDERED: ONDANSETRON 4 MG/2 ML VIAL IV PRN (15:39)
[2019-11-10] MEDS ORDERED: traMADol 50 MG TABLET PO PRN (15:41)
[2019-11-10] MEDS ORDERED: MAGNESIUM HYDROXIDE SUSP 30 ML UDCUP PO PRN (15:41)
[2019-11-10 16:07] LABS: Bacteria,Urine Many /HPF (Few); Bilirubin,Urine Negative (Negative); Blood, Urine Negative (Negative); Glucose,Urine (UA) Negative (Negative); Hyaline Casts,Urine 3 /LPF (0-3); Ketones,Urine Negative (Negative); Mucus,Urine Occasional /LPF (Occasional); Nitrite,Urine Negative (Negative); Protein,Urine Negative; RBC,Urine 1 /HPF (0-4); Squamous Epithelial Cell,Urine Occasional /HPF (0-10); Transitional Epi Cells,Urine Occasional /HPF (<1); Urine Appearance Slightly Hazy (Clear); Urine Color Amber (Yellow); Urine Specific Gravity 1.014 (1.001-1.035); WBC,Urine 3 /HPF (0-6)
[2019-11-10] MEDS: DEXTROSE 5% NACL 0.45% 1,000 ML IV SCH (17:44)
[2019-11-10] MEDS ORDERED: SODIUM CHLORIDE 0.9% 1,000 ML IV PRN (21:26)
[2019-11-10] MEDS: ASPIRIN CHEW 81 MG TABLET PO SCH (22:47)
[2019-11-10] MEDS: DOCUSATE SODIUM 100 MG CAPSULE PO SCH (22:47)
[2019-11-10] MEDS: MEMANTINE 10 MG TABLET PO SCH (22:47)
[2019-11-10] MEDS: cilostazoL 50 MG TABLET PO SCH (22:48)
[2019-11-10] MEDS: rOPINIRole 1 MG TABLET PO SCH (22:48)
[2019-11-10] MEDS: CARBIDOPA/LEVODOPA 25-100 MG TABLET PO SCH (22:48)
[2019-11-10] MEDS: MEROPENEM 500 MG in SODIUM CHLORIDE 0.9% 100 ML IV SCH ×2 (23:23→23:46)
[2019-11-11 02:08] LABS: Basophils % 0.2 % (0.0-0.8); Hematocrit 25.4 VOL% (35.7-47.0); Hemoglobin 7.8 GM/DL (12.0-16.0); Immature Granulocytes % 0.4 %; Immature Granulocytes Absolute 0.02 #; Lymphocytes # 0.8 10*3/uL (1.4-4.0); Lymphocytes % 14.9 % (21.3-54.2); Mean Corpuscular HGB Conc 30.7 GM/DL (32-36); Mean Corpuscular Volume 74.1 FL (87-102); Monocytes % 7.9 % (1.7-12.7); NRBC # 0.11 10*3/uL; Neutrophils % 76.6 % (38.7-73.9); Platelet Count 98 T/CUMM (130-400); Red Blood Count 3.43 MC/CUMM (3.8-5.5); Red Cell Distribution Width 18.2 % (9.3-17.3); White Blood Count 5.3 T/CUMM (4-12)
[2019-11-11 02:18] LABS: Calcium 9.1 MG/DL (8.5-10.1); Osmolality,Calculated 300.4 MOS/KG (273-304)
[2019-11-11] MEDS: NON-FORMULARY MEDICATION (Cran-Vitc-Mannose-Fos-Bromeln [Uti-Stat] 3,875 mg/30 mL Liquid) PO SCH ×3 (06:28→21:50)
[2019-11-11] MEDS: cilostazoL 50 MG TABLET PO SCH ×2 (09:50→21:27)
[2019-11-11] MEDS: MEGESTROL 400 MG/10 ML UDCUP PO SCH (09:50)
[2019-11-11] MEDS: MEMANTINE 10 MG TABLET PO SCH ×2 (09:50→21:27)
[2019-11-11] MEDS: DOCUSATE SODIUM 100 MG CAPSULE PO SCH ×2 (09:50→21:27)
[2019-11-11] MEDS: CARBIDOPA/LEVODOPA 25-100 MG TABLET PO SCH ×3 (09:50→21:27)
[2019-11-11] MEDS: ASPIRIN CHEW 81 MG TABLET PO SCH ×2 (09:50→21:27)
[2019-11-11] MEDS: SKIN HEALING OINT (AQUAPHOR) 50 GM TUBE TOP SCH (09:51)
[2019-11-11] MEDS: rOPINIRole 1 MG TABLET PO SCH ×3 (09:51→21:27)
[2019-11-11] MEDS: POLYETHYLENE GLYCOL POWDER 17 GM PACK PO SCH (09:51)
[2019-11-11] MEDS: PANTOPRAZOLE 40 MG TABLET PO SCH (09:51)
[2019-11-11] MEDS: RIVAROXABAN 2.5 MG TABLET PO SCH ×2 (09:52→10:03)
[2019-11-11 12:46] LABS: Hematocrit 40.7 VOL% (35.7-47.0); Hemoglobin 13.2 GM/DL (12.0-16.0)
[2019-11-11] MEDS: MEROPENEM 500 MG in SODIUM CHLORIDE 0.9% 100 ML IV SCH ×2 (13:23→23:30)
[2019-11-11] MEDS: DEXTROSE 5% NACL 0.45% 1,000 ML IV SCH ×2 (16:12→17:06)
[2019-11-12] MEDS: DEXTROSE 5% NACL 0.45% 1,000 ML IV SCH ×2 (03:51→17:35)
[2019-11-12 05:25] LABS: Basophils % 0.2 % (0.0-0.8); Eosinophils % 0.2 % (0.00-10.9); Hematocrit 35.7 VOL% (35.7-47.0); Hemoglobin 11.8 GM/DL (12.0-16.0); Immature Granulocytes % 0.2 %; Immature Granulocytes Absolute 0.01 #; Lymphocytes # 0.6 10*3/uL (1.4-4.0); Lymphocytes % 10.1 % (21.3-54.2); Mean Corpuscular HGB Conc 33.1 GM/DL (32-36); Mean Corpuscular Volume 79.3 FL (87-102); NRBC # 0.06 10*3/uL; Neutrophils % 81.3 % (38.7-73.9); White Blood Count 6.4 T/CUMM (4-12)
[2019-11-12 05:29] LABS: Platelet Count 73 T/CUMM (130-400)
[2019-11-12 05:45] LABS: Band Neutrophils 6 % (0-10); Hypochromasia 1+; Lymphocytes 12 % (20-55); Microcytosis 1+; Nucleated Red Blood Cells 2 (0-5); Segmented Neutrophils 71 % (50-85); Target Cells Slight; Total Cells Counted 100
[2019-11-12 05:46] LABS: Acanthocytes Few; Platelet Estimate Decreased
[2019-11-12 05:47] LABS: Albumin 2.2 G/DL (3.4-5.0); Bilirubin,Total 0.7 MG/DL (0.2-1.0); Calcium 8.5 MG/DL (8.5-10.1); Osmolality,Calculated 298.7 MOS/KG (273-304); Total Protein 5.1 G/DL (6.4-8.3)
[2019-11-12] MEDS: cilostazoL 50 MG TABLET PO SCH ×3 (09:43→22:11)
[2019-11-12] MEDS: PANTOPRAZOLE 40 MG TABLET PO SCH (09:43)
[2019-11-12] MEDS: RIVAROXABAN 2.5 MG TABLET PO SCH (09:43)
[2019-11-12] MEDS: MEMANTINE 10 MG TABLET PO SCH ×3 (09:43→22:10)
[2019-11-12] MEDS: ASPIRIN CHEW 81 MG TABLET PO SCH ×3 (09:43→22:10)
[2019-11-12] MEDS: DOCUSATE SODIUM 100 MG CAPSULE PO SCH ×3 (09:43→22:10)
[2019-11-12] MEDS: rOPINIRole 1 MG TABLET PO SCH ×4 (09:43→22:11)
[2019-11-12] MEDS: CARBIDOPA/LEVODOPA 25-100 MG TABLET PO SCH ×4 (09:43→22:11)
[2019-11-12] MEDS: POLYETHYLENE GLYCOL POWDER 17 GM PACK PO SCH (09:44)
[2019-11-12] MEDS: MEGESTROL 400 MG/10 ML UDCUP PO SCH (09:44)
[2019-11-12] MEDS: SKIN HEALING OINT (AQUAPHOR) 50 GM TUBE TOP SCH (10:50)
[2019-11-12] MEDS: NON-FORMULARY MEDICATION (Cran-Vitc-Mannose-Fos-Bromeln [Uti-Stat] 3,875 mg/30 mL Liquid) PO SCH ×2 (10:50→22:08)
[2019-11-12] MEDS: MEROPENEM 500 MG in SODIUM CHLORIDE 0.9% 100 ML IV SCH (11:44)
[2019-11-12] MEDS ORDERED: MULTIVITAMIN INJ 10 ML, TRACE ELEMENTS (5) 1 ML in AMINO ACIDS/DEXT/LYTES 4.25-5% 2,000 ML IV SCH (17:00)
[2019-11-12] MEDS: DEXTROSE 50% 25 GM/50 ML VIAL IV PRN (21:59)
[2019-11-13] MEDS: ALBUMIN 25% 25 GM in PREMIX 1 EACH IV SCH ×3 (01:07→15:37)
[2019-11-13 06:45] LABS: Basophils % 0.2 % (0.0-0.8); Eosinophils % 0.2 % (0.00-10.9); Hematocrit 36.3 VOL% (35.7-47.0); Hemoglobin 12.1 GM/DL (12.0-16.0); Immature Granulocytes % 0.5 %; Immature Granulocytes Absolute 0.03 #; Lymphocytes # 0.6 10*3/uL (1.4-4.0); Lymphocytes % 8.8 % (21.3-54.2); Mean Corpuscular HGB Conc 33.3 GM/DL (32-36); Mean Corpuscular Volume 76.6 FL (87-102); Monocytes % 5.2 % (1.7-12.7); NRBC # 0.13 10*3/uL; Neutrophils % 85.1 % (38.7-73.9); Red Blood Count 4.74 MC/CUMM (3.8-5.5); Red Cell Distribution Width 19.2 % (9.3-17.3); White Blood Count 6.4 T/CUMM (4-12)
[2019-11-13 06:47] LABS: Platelet Count 77 T/CUMM (130-400)
[2019-11-13 07:07] LABS: Hypochromasia 1+; Microcytosis Slight; Ovalocytes Slight; Platelet Estimate Decreased
[2019-11-13] MEDS: DEXTROSE 50% 25 GM/50 ML VIAL IV PRN (07:21)
[2019-11-13 07:23] LABS: Calcium 9.5 MG/DL (8.5-10.1); Osmolality,Calculated 288.1 MOS/KG (273-304); Prealbumin 7.1 MG/DL (20-40)
[2019-11-13] MEDS: ASPIRIN CHEW 81 MG TABLET PO SCH ×4 (10:04→22:55)
[2019-11-13] MEDS: MEGESTROL 400 MG/10 ML UDCUP PO SCH ×2 (10:04→10:53)
[2019-11-13] MEDS: cilostazoL 50 MG TABLET PO SCH ×4 (10:05→22:55)
[2019-11-13] MEDS: PANTOPRAZOLE 40 MG TABLET PO SCH ×2 (10:05→10:54)
[2019-11-13] MEDS: MEMANTINE 10 MG TABLET PO SCH ×4 (10:05→22:55)
[2019-11-13] MEDS: CARBIDOPA/LEVODOPA 25-100 MG TABLET PO SCH ×5 (10:05→22:58)
[2019-11-13] MEDS: rOPINIRole 1 MG TABLET PO SCH ×5 (10:05→22:55)
[2019-11-13] MEDS: DOCUSATE SODIUM 100 MG CAPSULE PO SCH ×4 (10:05→22:55)
[2019-11-13] MEDS: POLYETHYLENE GLYCOL POWDER 17 GM PACK PO SCH ×2 (10:06→10:54)
[2019-11-13] MEDS: SKIN HEALING OINT (AQUAPHOR) 50 GM TUBE TOP SCH (10:06)
[2019-11-13] MEDS: NON-FORMULARY MEDICATION (Cran-Vitc-Mannose-Fos-Bromeln [Uti-Stat] 3,875 mg/30 mL Liquid) PO SCH ×2 (10:06→22:10)
[2019-11-13] MEDS: RIVAROXABAN 2.5 MG TABLET PO SCH ×2 (10:07→10:54)
[2019-11-13] MEDS: MULTIVITAMIN INJ 10 ML, TRACE ELEMENTS (5) 1 ML in AMINO ACIDS/DEXT/LYTES 4.25-5% 2,000 ML IV SCH (11:15)
[2019-11-13] MEDS ORDERED: HALOPERIDOL 5 MG/ML AMP IM PRN (14:10)
[2019-11-14] MEDS: ALBUMIN 25% 25 GM in PREMIX 1 EACH IV SCH ×3 (00:35→18:00)
[2019-11-14 06:02] LABS: Basophils % 0.2 % (0.0-0.8); Eosinophils % 0.2 % (0.00-10.9); Hematocrit 26.5 VOL% (35.7-47.0); Hemoglobin 8.8 GM/DL (12.0-16.0); Immature Granulocytes % 0.5 %; Immature Granulocytes Absolute 0.02 #; Lymphocytes # 0.5 10*3/uL (1.4-4.0); Lymphocytes % 13.4 % (21.3-54.2); Mean Corpuscular HGB Conc 33.2 GM/DL (32-36); Mean Corpuscular Volume 77.7 FL (87-102); Monocytes % 6.2 % (1.7-12.7); NRBC # 0.03 10*3/uL; Neutrophils % 79.5 % (38.7-73.9); Platelet Count 49 T/CUMM (130-400); Red Blood Count 3.41 MC/CUMM (3.8-5.5); Red Cell Distribution Width 19.5 % (9.3-17.3)
[2019-11-14 06:22] LABS: Hypochromasia 1+; Microcytosis 1+; Platelet Estimate Decreased
[2019-11-14 06:27] LABS: Albumin 3.3 G/DL (3.4-5.0); Bilirubin,Total 1.2 MG/DL (0.2-1.0); Calcium 9.3 MG/DL (8.5-10.1); Total Protein 5.4 G/DL (6.4-8.3)
[2019-11-14] MEDS: DEXTROSE 50% 25 GM/50 ML VIAL IV PRN (07:25)
[2019-11-14] MEDS: MEGESTROL 400 MG/10 ML UDCUP PO SCH (10:26)
[2019-11-14] MEDS: ASPIRIN CHEW 81 MG TABLET PO SCH ×2 (10:26→21:44)
[2019-11-14] MEDS: DOCUSATE SODIUM 100 MG CAPSULE PO SCH ×2 (10:26→21:44)
[2019-11-14] MEDS: SKIN HEALING OINT (AQUAPHOR) 50 GM TUBE TOP SCH (10:27)
[2019-11-14] MEDS: CARBIDOPA/LEVODOPA 25-100 MG TABLET PO SCH ×3 (10:27→21:45)
[2019-11-14] MEDS: NON-FORMULARY MEDICATION (Cran-Vitc-Mannose-Fos-Bromeln [Uti-Stat] 3,875 mg/30 mL Liquid) PO SCH ×2 (10:27→21:44)
[2019-11-14] MEDS: MEMANTINE 10 MG TABLET PO SCH ×2 (10:27→21:45)
[2019-11-14] MEDS: cilostazoL 50 MG TABLET PO SCH ×2 (10:27→21:44)
[2019-11-14] MEDS: rOPINIRole 1 MG TABLET PO SCH ×3 (10:27→21:45)
[2019-11-14] MEDS: POLYETHYLENE GLYCOL POWDER 17 GM PACK PO SCH (10:27)
[2019-11-14] MEDS: RIVAROXABAN 2.5 MG TABLET PO SCH (10:27)
[2019-11-14] MEDS: PANTOPRAZOLE 40 MG TABLET PO SCH (10:27)
[2019-11-14] MEDS: MULTIVITAMIN INJ 10 ML, TRACE ELEMENTS (5) 1 ML in AMINO ACIDS/DEXT/LYTES 4.25-5% 2,000 ML IV SCH ×2 (10:59→17:12)
[2019-11-15] MEDS: ALBUMIN 25% 25 GM in PREMIX 1 EACH IV SCH ×3 (03:46→18:15)
[2019-11-15 06:12] LABS: Calcium 9.2 MG/DL (8.5-10.1)
[2019-11-15 06:16] LABS: Eosinophils % 0.4 % (0.00-10.9); Hematocrit 27.6 VOL% (35.7-47.0); Hemoglobin 9.1 GM/DL (12.0-16.0); Immature Granulocytes % 0.2 %; Immature Granulocytes Absolute 0.01 #; Lymphocytes # 0.9 10*3/uL (1.4-4.0); Lymphocytes % 17.6 % (21.3-54.2); Mean Corpuscular Volume 78.2 FL (87-102); Monocytes % 6.8 % (1.7-12.7); Red Blood Count 3.53 MC/CUMM (3.8-5.5); White Blood Count 4.9 T/CUMM (4-12)
[2019-11-15 07:09] LABS: Platelet Count 39 T/CUMM (130-400)
[2019-11-15] MEDS: SKIN HEALING OINT (AQUAPHOR) 50 GM TUBE TOP SCH (09:15)
[2019-11-15] MEDS: ASPIRIN CHEW 81 MG TABLET PO SCH ×2 (09:18→22:13)
[2019-11-15] MEDS: NON-FORMULARY MEDICATION (Cran-Vitc-Mannose-Fos-Bromeln [Uti-Stat] 3,875 mg/30 mL Liquid) PO SCH ×2 (09:18→22:13)
[2019-11-15] MEDS: MEGESTROL 400 MG/10 ML UDCUP PO SCH (09:18)
[2019-11-15] MEDS: MEMANTINE 10 MG TABLET PO SCH ×2 (09:18→22:14)
[2019-11-15] MEDS: DOCUSATE SODIUM 100 MG CAPSULE PO SCH ×2 (09:18→22:13)
[2019-11-15] MEDS: cilostazoL 50 MG TABLET PO SCH ×2 (09:18→22:14)
[2019-11-15] MEDS: POLYETHYLENE GLYCOL POWDER 17 GM PACK PO SCH (09:18)
[2019-11-15] MEDS: rOPINIRole 1 MG TABLET PO SCH ×3 (09:19→22:14)
[2019-11-15] MEDS: CARBIDOPA/LEVODOPA 25-100 MG TABLET PO SCH ×3 (09:19→22:14)
[2019-11-15] MEDS: PANTOPRAZOLE 40 MG TABLET PO SCH (09:19)
[2019-11-15] MEDS: RIVAROXABAN 2.5 MG TABLET PO SCH (09:19)
[2019-11-15 10:54] LABS: Polychromasia Slight; Target Cells 1+
[2019-11-15 10:55] LABS: Burr Cells Few; Hypochromasia 4+; Microcytosis 3+; Platelet Estimate Decreased; Schistocytes Few; Stomatocytes Few
[2019-11-15 14:05] LABS: Eosinophils % 0.2 % (0.00-10.9); Hematocrit 27.4 VOL% (35.7-47.0); Hemoglobin 8.7 GM/DL (12.0-16.0); Immature Granulocytes % 0.4 %; Immature Granulocytes Absolute 0.02 #; Lymphocytes # 0.8 10*3/uL (1.4-4.0); Lymphocytes % 15.6 % (21.3-54.2); Mean Corpuscular HGB Conc 31.8 GM/DL (32-36); Mean Corpuscular Volume 80.8 FL (87-102); Monocytes % 6.3 % (1.7-12.7); Neutrophils % 77.5 % (38.7-73.9); Platelet Count 41 T/CUMM (130-400); Red Blood Count 3.39 MC/CUMM (3.8-5.5); Red Cell Distribution Width 20.5 % (9.3-17.3); White Blood Count 5.4 T/CUMM (4-12)
[2019-11-15 15:03] LABS: Anisocytosis 1+; Hypochromasia Slight
[2019-11-15 15:04] LABS: Helmet Cells Few; Ovalocytes Few
[2019-11-15 15:06] LABS: Platelet Estimate Decreased
[2019-11-15] MEDS: MULTIVITAMIN INJ 10 ML, TRACE ELEMENTS (5) 1 ML in AMINO ACIDS/DEXT/LYTES 4.25-5% 2,000 ML IV SCH (17:16)
[2019-11-15] MEDS: DEXTROSE 50% 25 GM/50 ML VIAL IV PRN (22:05)
[2019-11-16] MEDS: ALBUMIN 25% 25 GM in PREMIX 1 EACH IV SCH ×3 (03:30→19:28)
[2019-11-16 05:02] LABS: Eosinophils % 0.4 % (0.00-10.9); Hematocrit 27.7 VOL% (35.7-47.0); Hemoglobin 9.2 GM/DL (12.0-16.0); Immature Granulocytes % 0.4 %; Immature Granulocytes Absolute 0.02 #; Lymphocytes # 0.6 10*3/uL (1.4-4.0); Lymphocytes % 13.3 % (21.3-54.2); Mean Corpuscular HGB Conc 33.2 GM/DL (32-36); Mean Corpuscular Volume 78.9 FL (87-102); Monocytes % 6.3 % (1.7-12.7); Neutrophils % 79.6 % (38.7-73.9); Platelet Count 42 T/CUMM (130-400); Red Blood Count 3.51 MC/CUMM (3.8-5.5); White Blood Count 4.8 T/CUMM (4-12)
[2019-11-16 05:19] LABS: Calcium 9.6 MG/DL (8.5-10.1); Osmolality,Calculated 293.4 MOS/KG (273-304)
[2019-11-16] MEDS: MEGESTROL 400 MG/10 ML UDCUP PO SCH (08:05)
[2019-11-16] MEDS: POLYETHYLENE GLYCOL POWDER 17 GM PACK PO SCH (08:05)
[2019-11-16] MEDS: ASPIRIN CHEW 81 MG TABLET PO SCH ×2 (08:05→22:58)
[2019-11-16] MEDS: DOCUSATE SODIUM 100 MG CAPSULE PO SCH ×2 (08:05→22:58)
[2019-11-16] MEDS: NON-FORMULARY MEDICATION (Cran-Vitc-Mannose-Fos-Bromeln [Uti-Stat] 3,875 mg/30 mL Liquid) PO SCH ×2 (08:05→22:58)
[2019-11-16] MEDS: PANTOPRAZOLE 40 MG TABLET PO SCH (08:06)
[2019-11-16] MEDS: CARBIDOPA/LEVODOPA 25-100 MG TABLET PO SCH ×3 (08:06→22:59)
[2019-11-16] MEDS: rOPINIRole 1 MG TABLET PO SCH ×3 (08:06→22:59)
[2019-11-16] MEDS: MEMANTINE 10 MG TABLET PO SCH ×2 (08:06→22:58)
[2019-11-16] MEDS: RIVAROXABAN 2.5 MG TABLET PO SCH (08:06)
[2019-11-16] MEDS: cilostazoL 50 MG TABLET PO SCH ×2 (08:06→22:58)
[2019-11-16] MEDS: SKIN HEALING OINT (AQUAPHOR) 50 GM TUBE TOP SCH (10:01)
[2019-11-16 11:58] LABS: Hypochromasia 3+; Microcytosis 3+; Ovalocytes Few; Platelet Estimate Decreased; Polychromasia Slight; Schistocytes Few; Target Cells Few
[2019-11-16] MEDS: MULTIVITAMIN INJ 10 ML, TRACE ELEMENTS (5) 1 ML in AMINO ACIDS/DEXT/LYTES 4.25-5% 2,000 ML IV SCH (18:10)
[2019-11-17] MEDS: ALBUMIN 25% 25 GM in PREMIX 1 EACH IV SCH ×2 (04:38→12:14)
[2019-11-17 08:28] LABS: Calcium 9.4 MG/DL (8.5-10.1); Osmolality,Calculated 296.3 MOS/KG (273-304)
[2019-11-17] MEDS: MEGESTROL 400 MG/10 ML UDCUP PO SCH (08:59)
[2019-11-17] MEDS: CARBIDOPA/LEVODOPA 25-100 MG TABLET PO SCH ×3 (09:00→21:22)
[2019-11-17] MEDS: cilostazoL 50 MG TABLET PO SCH ×2 (09:00→21:23)
[2019-11-17] MEDS: SKIN HEALING OINT (AQUAPHOR) 50 GM TUBE TOP SCH (09:00)
[2019-11-17] MEDS: rOPINIRole 1 MG TABLET PO SCH ×3 (09:00→21:22)
[2019-11-17] MEDS: PANTOPRAZOLE 40 MG TABLET PO SCH (09:00)
[2019-11-17] MEDS: MEMANTINE 10 MG TABLET PO SCH ×2 (09:00→21:23)
[2019-11-17] MEDS: ASPIRIN CHEW 81 MG TABLET PO SCH ×2 (09:00→21:22)
[2019-11-17] MEDS: NON-FORMULARY MEDICATION (Cran-Vitc-Mannose-Fos-Bromeln [Uti-Stat] 3,875 mg/30 mL Liquid) PO SCH ×2 (09:12→22:17)
[2019-11-17] MEDS: DOCUSATE SODIUM 100 MG CAPSULE PO SCH ×2 (09:12→21:22)
[2019-11-17] MEDS: RIVAROXABAN 2.5 MG TABLET PO SCH (09:13)
[2019-11-17] MEDS: POLYETHYLENE GLYCOL POWDER 17 GM PACK PO SCH (09:13)
[2019-11-17] MEDS: MULTIVITAMIN INJ 10 ML, TRACE ELEMENTS (5) 1 ML in AMINO ACIDS/DEXT/LYTES 4.25-5% 2,000 ML IV SCH (17:24)
[2019-11-18 04:22] LABS: Basophils % 0.2 % (0.0-0.8); Eosinophils % 0.7 % (0.00-10.9); Hematocrit 26.2 VOL% (35.7-47.0); Hemoglobin 8.5 GM/DL (12.0-16.0); Immature Granulocytes % 0.2 %; Immature Granulocytes Absolute 0.01 #; Lymphocytes # 0.5 10*3/uL (1.4-4.0); Lymphocytes % 11.5 % (21.3-54.2); Mean Corpuscular HGB Conc 32.4 GM/DL (32-36); Mean Corpuscular Volume 80.1 FL (87-102); Monocytes % 10.3 % (1.7-12.7); Neutrophils % 77.1 % (38.7-73.9); Platelet Count 61 T/CUMM (130-400); Red Blood Count 3.27 MC/CUMM (3.8-5.5); White Blood Count 4.2 T/CUMM (4-12)
[2019-11-18 04:42] LABS: Hypochromasia 1+; Microcytosis 2+
[2019-11-18 04:43] LABS: Acanthocytes Few; Platelet Estimate Decreased; Target Cells Few
[2019-11-18 04:47] LABS: Albumin 3.4 G/DL (3.4-5.0); Calcium 9.1 MG/DL (8.5-10.1); Osmolality,Calculated 290.8 MOS/KG (273-304); Total Protein 5.5 G/DL (6.4-8.3)
[2019-11-18] MEDS: MEGESTROL 400 MG/10 ML UDCUP PO SCH (09:00)
[2019-11-18] MEDS: SKIN HEALING OINT (AQUAPHOR) 50 GM TUBE TOP SCH (09:01)
[2019-11-18] MEDS: rOPINIRole 1 MG TABLET PO SCH ×3 (09:01→21:02)
[2019-11-18] MEDS: MEMANTINE 10 MG TABLET PO SCH ×2 (09:01→21:02)
[2019-11-18] MEDS: cilostazoL 50 MG TABLET PO SCH ×2 (09:01→21:01)
[2019-11-18] MEDS: ASPIRIN CHEW 81 MG TABLET PO SCH ×2 (09:01→21:02)
[2019-11-18] MEDS: PANTOPRAZOLE 40 MG TABLET PO SCH (09:01)
[2019-11-18] MEDS: CARBIDOPA/LEVODOPA 25-100 MG TABLET PO SCH ×3 (09:01→21:01)
[2019-11-18] MEDS: RIVAROXABAN 2.5 MG TABLET PO SCH (09:02)
[2019-11-18] MEDS: DOCUSATE SODIUM 100 MG CAPSULE PO SCH ×2 (09:10→21:02)
[2019-11-18] MEDS: NON-FORMULARY MEDICATION (Cran-Vitc-Mannose-Fos-Bromeln [Uti-Stat] 3,875 mg/30 mL Liquid) PO SCH ×2 (09:11→21:02)
[2019-11-18] MEDS: POLYETHYLENE GLYCOL POWDER 17 GM PACK PO SCH (09:11)
[2019-11-18] MEDS: MULTIVITAMIN INJ 10 ML, TRACE ELEMENTS (5) 1 ML in AMINO ACIDS/DEXT/LYTES 4.25-5% 2,000 ML IV SCH (17:43)
[2019-11-19 05:47] LABS: Eosinophils % 0.4 % (0.00-10.9); Hematocrit 24.9 VOL% (35.7-47.0); Immature Granulocytes % 0.4 %; Immature Granulocytes Absolute 0.02 #; Lymphocytes # 0.6 10*3/uL (1.4-4.0); Lymphocytes % 12.8 % (21.3-54.2); Mean Corpuscular HGB Conc 32.1 GM/DL (32-36); Mean Corpuscular Volume 80.6 FL (87-102); Monocytes % 14.7 % (1.7-12.7); Neutrophils % 71.7 % (38.7-73.9); Red Blood Count 3.09 MC/CUMM (3.8-5.5); Red Cell Distribution Width 19.9 % (9.3-17.3); White Blood Count 4.7 T/CUMM (4-12)
[2019-11-19 05:54] LABS: Platelet Count 70 T/CUMM (130-400)
[2019-11-19 06:17] LABS: Hypochromasia 1+; Microcytosis Slight; Platelet Estimate Decreased
[2019-11-19 06:21] LABS: Albumin 3.1 G/DL (3.4-5.0); Bilirubin,Total 1.1 MG/DL (0.2-1.0); Osmolality,Calculated 286.2 MOS/KG (273-304); Total Protein 5.4 G/DL (6.4-8.3)
[2019-11-19 16:49] VITALS: BP 81/47
[2019-11-24] MEDS ORDERED: [UNRECOGNIZED DRUG - OTHER] IM SCH (09:00)
[2019-11-24] MEDS ORDERED: RISPERIDONE IM SCH (09:00)
== END 2019-11-19 11:38 | disposition expired | DRG 641 ==
LOC: EDBD → EDUNIT# → N.EDINP 13:03 → N.ED 13:03 → N.EDINP 19:22 → N.3E 19:33
PROVIDERS: ADMIT Internal Medicine; ATTEND Internal Medicine